=== PATIENT | male | born 1985 | race African-American/Black ===

== ENCOUNTER 2022-02-15 09:27 | Emergency (ER) | payer OTHER ==
[~2022-02-15] VITALS: Ht 177.8 cm; Wt 77.0 kg
[2022-02-15] MEDS ORDERED: KETOROLAC 60MG/2ML VIAL IM ONE (10:30)
[2022-02-15] MEDS ORDERED: HYDR-4001 MT (11:44)
[2022-02-15] MEDS ORDERED: IBUP-2029 MT (11:44)
[2022-02-15] MEDS ORDERED: MORPHINE SULFATE 10 MG/ML CPJ IM ONE (11:45)
[2022-02-15 13:45] VITALS: BP 118/80
== END 2022-02-15 14:10 | disposition home or self-care (01) ==
LOC: ER 09:27
DX: S82.041A Displaced comminuted fracture of right patella, initial encounter for closed fracture (principal); V28.09XA Other motorcycle driver injured in noncollision transport accident in nontraffic accident, initial encounter; Y93.89 Activity, other specified; Y92.488 Other paved roadways as the place of occurrence of the external cause
CPT/HCPCS: 73562; 96372; 99284; J1885; J2270; L1830